=== PATIENT | male | born 2000 | race Caucasian/White ===

== ENCOUNTER 2019-05-25 17:35 | Emergency (ER) | payer SELFPAY ==
[2019-05-25 17:50] VITALS: BP 134/82
[2019-05-25] MEDS ORDERED: Lidocaine 1% MPF ** 5 ML VIAL IM ONE (18:13)
[2019-05-25] MEDS ORDERED: cefTRIAXone VIAL(*) 250 MG VIAL IM ONE (18:13)
[2019-05-25] MEDS ORDERED: Azithromycin TAB* 250 MG PO ONE (18:14)
--- NOTE | 2019-05-25 18:37 | UC ---
Throat Pain/Nasal Mikel HPI - HPI Summary HPI Summary: Patient is a 18yo male presenting with a cough and nasal congestion x1 day. Cough is nonproductive. Denies headache, ear pain, sore throat. Denies SOB and wheezing. Denies n/v/d. Denies changes in urination and BMs. Denies fever, chills, fatigue. Notes he has take an OTC decongestant without relief. Denies sinus tenderness. Patient added that his ex girlfriend was recently diagnosed with chlamydia but never gave him the treatment for it. He is only concerned for chlamydia, no other STIs, and would like to be treated for it today. - History of Current Complaint Chief Complaint: UCGeneralIllness Stated Complaint: COUGH Time Seen by Provider: 05/25/19 17:46 Hx Obtained From: Patient Onset/Duration: Sudden Onset, Lasting Hours Severity: Mild Pain Intensity: 0 Pain Scale Used: 0-10 Numeric Cough: Nonproductive Associated Signs & Symptoms: Negative: Wheezing, Sinus Discomfort, Nasal Discharge Related History: Smoking - Allergies/Home Medications Allergies/Adverse Reactions: Allergies Allergy/AdvReac Type Severity Reaction Status Date / Time No Known Allergies Allergy Verified 05/25/19 17:50 PMH/Surg Hx/FS Hx/Imm Hx Previously Healthy: Yes - Surgical History Surgical History: Yes Surgery Procedure, Year, and Place: T & A, left tibia, right hand/wrist - Family History Known Family History: Positive: Diabetes, Other - lung cancer, leukemia, Non- Contributory Negative: Cardiac Disease, Hypertension - Social History Alcohol Use: None Substance Use Type: None Smoking Status (MU): Current Every Day Smoker Type: Cigarettes Household Exposure Type: Cigarettes - Immunization History Vaccination Up to Date: Yes Review of Systems All Other Systems Reviewed And Are Negative: Yes Constitutional: Negative: Fever, Chills, Fatigue Skin: Positive: Negative. Negative: Rash Eyes: Positive: Negative. Negative: Blurred Vision, Drainage, Eye Redness ENT: Positive: Sinus Congestion. Negative: Sore Throat, Ear Ache, Nasal Discharge, Sinus Pain/Tenderness Respiratory: Positive: Cough. Negative: Shortness Of Breath Cardiovascular: Positive: Negative. Negative: Palpitations, Chest Pain Gastrointestinal: Positive: Negative. Negative: Abdominal Pain, Vomiting, Diarrhea, Nausea Genitourinary: Positive: Negative. Negative: Dysuria, Vaginal/Penile Burning, Vaginal/Penile Itching, Vaginal/Penile Discharge, Vaginal/Penile Pain, Vaginal/ Penile Tenderness Musculoskeletal: Negative: Arthralgia Neurological: Negative: Headache, Weakness Physical Exam Triage Information Reviewed: Yes Appearance: Well-Appearing, No Pain Distress, Well-Nourished, Other: Vital Signs: Initial Vital Signs Temp 99.5 F 05/25/19 17:46 Pulse 98 05/25/19 17:46 Resp 16 05/25/19 17:46 BP 134/82 05/25/19 17:46 Pulse Ox 99 05/25/19 17:46 Vital Signs Reviewed: Yes Eyes: Positive: Conjunctiva Clear. Negative: Discharge ENT: Positive: Hearing grossly normal, Pharynx normal, Nasal congestion, TMs normal, Uvula midline. Negative: Nasal drainage, TM bulging, TM dull, TM red, Tonsillar swelling, Tonsillar exudate, Hoarse voice, Sinus tenderness Neck exam: Normal Neck: Positive: Supple, Nontender, No Lymphadenopathy Respiratory Exam: Normal Respiratory: Positive: Lungs clear, Normal breath sounds, No respiratory distress. Negative: Crackles, Wheezing Cardiovascular Exam: Normal Cardiovascular: Positive: RRR. Negative: Tachycardia Neurological: Positive: Alert Psychological: Positive: Age Appropriate Behavior, Other: - Patient seemed irritable Skin Exam: Normal Throat Pain/Nasal Course/Dx - Course Course Of Treatment: It was explained to the patient that his upper respiratory symptoms are most likely caused by a virus and that symptomatic treatment is recommended at this time. He was instructed to take mucinex as prescribed for his nasal congestion. I informed him that he may also use OTC cough medication and throat lozenges to help alleviate his cough. I also instructed him to get plenty of rest and fluids , and to refrain from smoking. The patient was counseled on STIs, and agreed to give urine to test for gonorrhea and chlamydia. Patient also agreed to be treated with the one time doses for gonorrhea and chlamydia. Other STI testing was offered including HIV, hepatitis, syphilis, and herpes, but the patient declined twice. Patient was instructed to return or go to the ED if any of his symptoms worsened. He voiced understanding and agreed to the treatment plan. - Differential Dx/Diagnosis Provider Diagnosis: Upper respiratory infection, acute, Exposure to sexually transmitted disease ( STD) Discharge ED - Sign-Out/Discharge Documenting (check all that apply): Patient Departure All imaging exams completed and their final reports reviewed: No Studies - Discharge Plan Condition: Stable Disposition: HOME Prescriptions: guaiFENesin ER TAB [Mucinex*] 600 mg PO BID PRN #12 tab.er PRN Reason: Congestion Patient Education Materials: Sexually Transmitted Diseases (ED) Referrals: [facility] [Outside] [facility] [Outside] Additional Instructions: As discussed, your symptoms are likely caused by a virus. Take mucinex as prescribed to alleviate nasal congestion. You may use over the counter cough medications or throat lozenges to help alleviate cough. You may take ibuprofen or tylenol as directed for pain relief. You were also treated today for both gonorrhea and chlamydia today. Please follow up with the [facility] or the Physician Referral as listed below if any of your symptoms persist or worsen. - Billing Disposition and Condition Condition: STABLE Disposition: Home
[2019-05-27 13:01] LABS: Chlamydia trachomatis NAA Negative (Negative); Neisseria gonorrhoeae (GC) NAA Negative (Negative)
--- NOTE | 2019-05-27 17:36 | UC ---
- Progress Note Progress Note: Neg GC/CH no change 05/27/19 17:35 Course/Dx - Diagnoses Provider Diagnoses: Upper respiratory infection, acute, Exposure to sexually transmitted disease ( STD) Discharge ED - Sign-Out/Discharge Documenting (check all that apply): Patient Departure All imaging exams completed and their final reports reviewed: No Studies - Discharge Plan Condition: Stable Disposition: HOME Prescriptions: guaiFENesin ER TAB [Mucinex*] 600 mg PO BID PRN #12 tab.er PRN Reason: Congestion Patient Education Materials: Sexually Transmitted Diseases (ED) Referrals: [facility] [Outside] [facility] [Outside] Additional Instructions: As discussed, your symptoms are likely caused by a virus. Take mucinex as prescribed to alleviate nasal congestion. You may use over the counter cough medications or throat lozenges to help alleviate cough. You may take ibuprofen or tylenol as directed for pain relief. You were also treated today for both gonorrhea and chlamydia today. Please follow up with the [facility] or the Physician Referral as listed below if any of your symptoms persist or worsen. - Billing Disposition and Condition Condition: STABLE Disposition: Home
== END 2019-05-25 18:44 | disposition home or self-care (01) ==
LOC: UCEAST 17:35
DX: J06.9 Acute upper respiratory infection, unspecified (principal); F17.210 Nicotine dependence, cigarettes, uncomplicated; Z20.2 Contact with and (suspected) exposure to infections with a predominantly sexual mode of transmission
CPT/HCPCS: 87491; 87591; 96372; 99212; A9270-GY; G0463; J0696